=== PATIENT | female | born 1970 | race Caucasian/White ===

== ENCOUNTER → 2016-04-13 | Outpatient (CLI) | payer OTHER ==
--- NOTE | 2016-04-13 15:49 | MA ---
Diagnostic Right Digital Mammogram With Tomosynthesis Clinical Indications: Upper right breast pain Technique: Standard digital cephalocaudal and tomosynthesis mediolateral oblique projections are obt ained. The digital images were processed by the [employer] computer aided detection system. Comparison: September 22, 2015, February Breast density: B; There are scattered fibroglandular densities. Findings: CAD was reviewed. No suspicious findings are identified. Impression: BI-RADS 0: Needs additional imaging evaluation, right breast.. Recommendation: We will proceed to ultrasound for evaluate the region of pain. [facility] will send a result letter to the patient. Negative mammography should not preclude additional workup of a clinically suspicious finding. The patient's information is entered into a reminder system with a target due date for her next mammo gram.
--- NOTE | 2016-04-13 16:18 | US ---
Right Breast Ultrasound History: Pain 9-10:00, 8 cm from the nipple Technique: I first performed a directed physical examination. This was followed by ultrasound exam with a high frequency linear transducer. Comparison: diagnostic mammogram earlier Findings: Physical examination of the upper outer right breast is negative. Ultrasound is also negati ve. No cyst or solid lesion or sonographic architectural distortion is identified. Impression: Negative right breast physical examination, diagnostic mammogram and ultrasound. Recommendation: The patient's breast pain should be managed clinically. Screening mammography is amina mmended in September 2016.
== END ==
LOC: FIMAGING 14:58
PROVIDERS: ATTEND Physician Assistant Medical
DX: Z12.39 Encounter for other screening for malignant neoplasm of breast (principal); N64.4 Mastodynia
CPT/HCPCS: 76641; 77061; G0206; G0279

== ENCOUNTER → 2018-06-01 | Outpatient (CLI) | payer OTHER | LOC: FIMAGING 10:22 | PROVIDERS: ATTEND Physician Assistant Medical | DX: Z12.31 Encounter for screening mammogram for malignant neoplasm of breast (principal) ==